=== PATIENT | female | born 1965 | race Caucasian/White ===

== ENCOUNTER → 2018-01-26 | Outpatient (CLI) | payer OTHER | LOC: M.RAD 09:52 | DX: Z12.31 Encounter for screening mammogram for malignant neoplasm of breast (principal) ==

== ENCOUNTER → 2019-01-04 | Outpatient (CLI) | payer OTHER ==
--- NOTE | 2019-01-04 14:32 | 2DMMODE ---
[place] [address] 2 D/M-MODE ECHOCARDIOGRAM Name: YOEL MEEKS Room: [facility]#: [id number] Admission: 01/04/19 Attend Phys: Cass Marquez Discharge: Date of : 61 Date of Service: 01/04/19 1432 Report #: [id number] THIS REPORT FOR: //name// APPROVED REPORT Study performed: 01/04/2019 11:03:10 EXAM: Comprehensive 2D, Doppler, and color-flow Echocardiogram Patient Location: Out-Patient BSA: 1.84 HR: 58 bpm BP: 110/60 mmHg Other Information Study Quality: Good Indications Bradycardia 2D Dimensions IVSd: 10.28 (7-11mm) LVOT Diam: 19.90 (18-24mm) LVDd: 42.06 mm PWd: 9.17 (7-11mm) Ascending Ao: 24.93 (22-36mm) LVDs: 25.27 (25-40mm) Aortic Root: 25.60 mm Volumes Left Atrial Volume (Systole) LA ESV Index: 9.70 mL/m2 Aortic Valve AoV Peak Leo.: 1.14 m/s AO Peak Gr.: 5.22 mmHg LVOT Max P.41 mmHg AO Mean Gr.: 2.70 mmHg LVOT Mean P.69 mmHg LVOT Max V: 1.05 m/s AO V2 VTI: 27.07 cm LVOT Mean V: 0.58 m/s MARIA ANTONIA (VTI): 2.61 cm2 LVOT V1 VTI: 22.74 cm Mitral Valve E/A Ratio: 1.48 MV Decel. Time: 221.70 ms MV E Max Leo.: 0.83 m/s MV PHT: 64.29 ms MVA (PHT): 3.42 [place] [address] 2 D/M-MODE ECHOCARDIOGRAM Name: JEANNAYOEL Room: [facility]#: [id number] Admission: 01/04/19 Attend Phys: Cass Marquez Discharge: Date of : 61 Date of Service: 01/04/19 1432 Report #: [id number] TDI E/Lateral E': 6.92 E/Medial E': 6.92 Medial E' Leo.: 0.12 m/s Lateral E' Leo.: 0.12 m/s Pulmonary Valve PV Peak Leo.: 0.91 m/s PV Peak Gr.: 3.29 mmHg Left Ventricle The left ventricle is normal size. There is normal LV segmental wall motion. There is normal left ventricular wall thickness. Left ventricular systolic function is normal. The left ventricular ejection fraction is within the normal range. LVEF is 60%. The left ventricular diastolic function is normal. Right Ventricle The right ventricle is normal size. The right ventricular systolic function is normal. Atria The left atrium size is normal. The right atrium size is normal. Aortic Valve The aortic valve is normal in structure. No aortic regurgitation is present. There is no aortic valvular stenosis. Mitral Valve The mitral valve is normal in structure. Mild mitral regurgitation. No evidence of mitral valve stenosis. Tricuspid Valve The tricuspid valve is normal in structure. There is no tricuspid valve regurgitation noted. Pulmonic Valve The pulmonary valve is normal in structure. There is no pulmonic valvular regurgitation. Great Vessels The aortic root is normal in size. IVC is normal in size and collapses >50% with inspiration. Pericardium There [place] [address] 2 D/M-MODE ECHOCARDIOGRAM Name: YOEL MEEKS TANNER Room: [facility]#: [id number] Admission: 01/04/19 Attend Phys: Cass Marquez Discharge: Date of : 61 Date of Service: 01/04/19 1432 Report #: [id number] <Conclusion> The left ventricle is normal size. There is normal left ventricular wall thickness. Left ventricular systolic function is normal. The left ventricular ejection fraction is within the normal range. LVEF is 60%. The left ventricular diastolic function is normal. The right ventricle is normal size. The left atrium size is normal. The aortic valve is normal in structure. The mitral valve is normal in structure. Mild mitral regurgitation. The tricuspid valve is normal in structure. IVC is normal in size and collapses >50% with inspiration. There is no pericardial effusion. There is normal LV segmental wall motion. <ELECTRONICALLY SIGNED> By: Emil Villar MD, FACC 01/04/19 1432 1432 [id number] Emil Villar MD, FACC /INF
== END ==
LOC: M.CRD 10:45
DX: I34.0 Nonrheumatic mitral (valve) insufficiency (principal)

== ENCOUNTER → 2019-01-25 | Outpatient (CLI) | payer OTHER | LOC: M.RAD 13:39 | DX: Z12.31 Encounter for screening mammogram for malignant neoplasm of breast (principal) ==